=== PATIENT | female | born 1970 | race Caucasian/White ===

== ENCOUNTER → 2021-11-28 00:39 | Outpatient (CLI) | payer OTHER, SELFPAY ==
[2021-11-28 17:08] LABS: SARS-CoV-2 RNA PCR Negative
== END ==
PROVIDERS: PCP Family Medicine; Visit Provider Family Medicine
DX: Z20.822 Contact with and (suspected) exposure to COVID-19 (principal)
CPT/HCPCS: C9803; U0003; U0005

== ENCOUNTER 2024-10-03 00:16 | Day surgery (SDC) | payer OTHER, SELFPAY ==
[2024-09-11 13:32] VITALS: BMI 18.1
[2024-10-03 11:11] VITALS: BP 121/80; PULSE 87; RESP 16; TEMP 36.4; O2SAT 99
[2024-10-03] MEDS: LACTATED RINGERS 1,000 ML 150 ML IV CONT (11:22)
--- NOTE | 2024-10-03 12:05 | P.HP_ITS ---
H&P: [facility] History of Present Illness Date/Time: 10/03/24 12:05 Chief Complaint: Weight loss Narrative: the patient is referred for the investigation of more than 20 lb weight loss in the past year. She states that her appetite has decreased and describes intermittent epigastric discomfort and frequent heartburn, which persists despite antacid medication. Her last colonoscopy was more than 10 years ago. Maurice mehta is now referred for EGD and colonoscopy. Review of Systems Review of Systems: All systems reviewed & are unremarkable except as noted in HPI and below PMFSH Past Medical History Medical History Generalized osteoarthritis Insomnia Interstitial cystitis Surgical History Surgical History History of bladder suspension procedure 2009 History of hysterectomy 2002 History of oophorectomy Also in 2002 History of sinus surgery 1997 Family History Family History Mother Hypertension Father Hypertension Heart disease Social History Social History Smoking status: Never smoker Alcohol intake: current Drinks per week: 1 Alcohol use details: 2 drinks monthly Substance use: never Substance use type: does not use Do You Feel Safe in your Home?: Yes Lack of Transportation: No Lack of Food: Never True Current Housing: I Have Housing Concerned About Future Housing: No Difficulty Paying Gas/Electric Bills: No Difficulty Paying for Meds: No Currently Unemployed: No Education: High School Diploma/GED Difficulty w/ Childcare or Family Care: No Living arrangements: with family Occupation/Education: occupation Additional occupation/education comments: Cleans houses, paints, substitutes at preschool Gender identity (if verbalized by the patient): Female Sexual Orientation (if Verbalized by the Patient): Straight or Heterosexual Spiritual care concerns: No Meds Home Medications and Allergies Home Medications ?Medication ?Instructions ?Recorded ?Confirmed ?Type cyclobenzaprine 10 mg tablet 10 mg PO TID PRN muscle spasm #30 06/05/24 10/03/24 Rx tabs trazodone 100 mg tablet 100 mg PO QHS PRN insomnia #90 tabs 07/08/24 10/03/24 Rx famotidine 20 mg tablet (Pepcid AC) 20 mg PO DAILY 08/26/24 09/11/24 History omeprazole 40 mg capsule,delayed 40 mg PO DAILY #90 caps 08/26/24 10/03/24 Rx release Allergies Allergy/AdvReac Type Severity Reaction Status Date / Time No Known Allergies Allergy Unknown Verified 10/03/24 11:04 Vital Signs Vital Signs - 24 hr 10/03/24 11:11 Temperature 97.5 F L Pulse Rate 87 Respiratory Rate 16 Blood Pressure 121/80 Pulse Oximetry 99 Oxygen Delivery Room Air Exam Const: General: cooperative and healthy appearing Resp: Effort & Inspection: normal respiratory effort and able to speak in complete sentences Auscultation: clear to auscultation bilaterally Cardio: Rate: regular rate Rhythm: regular rhythm GI: Inspection: normal to inspection GI Palp: No No hepatosplenomegaly present Auscultation: normal bowel sounds Rectal Exam: deferred Skin: General skin exam: normal color Psych: Appearance: grossly normal Mental Status: mental status grossly normal Assessment and Plan Assessment and plan (1) Weight loss: Code(s): R63.4 - Abnormal weight loss Status: Acute Assessment and Plan: The patient is deemed a good candidate for the procedures. Consent signed. Will proceed.
--- NOTE | 2024-10-03 12:34 | WPDANESEPPF ---
Anes - Initial Pre Proc Eval Procedure: Operation Date: 10/03/24 11:30 Proposed Procedures p Esophagogastroduodenoscopy&Screen Colon - Esteban Prieto MD Date/Time: 10/03/24 12:34 Surgeon: Esteban Prieto MD Pre Op Diagnosis: Anorexia,abnormal weight loss,epigastric pain Patient Data Age: 53 Gender: F Height: 1.57 m Weight: 45.3 kg Last Vital Signs Temp 97.5 F L 10/03/24 11:11 Pulse 87 10/03/24 11:11 Resp 16 10/03/24 11:11 BP 121/80 10/03/24 11:11 Pulse Ox 99 10/03/24 11:11 O2 Del Method Room Air 10/03/24 11:11 Allergies Allergy/AdvReac Type Severity Reaction Status Date / Time No Known Allergies Allergy Unknown Verified 10/03/24 11:04 Home Medications ?Medication ?Instructions ?Recorded ?Confirmed ?Type cyclobenzaprine 10 mg tablet 10 mg PO TID PRN muscle spasm #30 06/05/24 10/03/24 Rx tabs trazodone 100 mg tablet 100 mg PO QHS PRN insomnia #90 tabs 07/08/24 10/03/24 Rx famotidine 20 mg tablet (Pepcid AC) 20 mg PO DAILY 08/26/24 09/11/24 History omeprazole 40 mg capsule,delayed 40 mg PO DAILY #90 caps 08/26/24 10/03/24 Rx release Patient hx anesthesia problems: none Family hx anesthesia problems: none Results Review: All pre-operative results and documents have been reviewed as part of the pre-operative evaluation. [facility] Past Medical History Medical History Generalized osteoarthritis Insomnia Interstitial cystitis Surgical History Surgical History History of bladder suspension procedure 2009 History of hysterectomy 2002 History of oophorectomy Also in 2002 History of sinus surgery 1997 Family History Family History Mother Hypertension Father Hypertension Heart disease Social History Social History Smoking status: Never smoker Alcohol intake: current Drinks per week: 1 Alcohol use details: 2 drinks monthly Substance use: never Substance use type: does not use Do You Feel Safe in your Home?: Yes Lack of Transportation: No Lack of Food: Never True Current Housing: I Have Housing Concerned About Future Housing: No Difficulty Paying Gas/Electric Bills: No Difficulty Paying for Meds: No Currently Unemployed: No Education: High School Diploma/GED Difficulty w/ Childcare or Family Care: No Living arrangements: with family Occupation/Education: occupation Additional occupation/education comments: Cleans houses, paints, substitutes at preschool Gender identity (if verbalized by the patient): Female Sexual Orientation (if Verbalized by the Patient): Straight or Heterosexual Spiritual care concerns: No Anes - Eval Final PreProcedure Day of Procedure 10/03/24 12:34 Patient weight: normal Heart: regular rate and rhythm Lungs: clear to auscultation Airway: Mallampati scale class II Neurological: alert and oriented Last oral intake: >/= 8 hours ASA classification: II Emergent: no Anesthetic plan: proceed Anesthesia type and monitoring: general GIVS and standard monitoring Results Review: All pre-operative results and documents have been reviewed as part of the pre-operative evaluation. Informed Consent: The patient's anesthetic plan and its attendant risks and benefits were discussed with the patient/family/POA. Questions were solicited and answers provided to the satisfaction of the patient/family/POA.
--- NOTE | 2024-10-03 13:04 | SUR.OPER ---
EGD:[id number] COLON:[id number]
[2024-10-03 13:32] VITALS: BP 98/61; PULSE 52; RESP 13; O2SAT 100
[2024-10-03 13:42] VITALS: BP 96/60; PULSE 57; RESP 12; O2SAT 100
[2024-10-03 13:52] VITALS: BP 119/84; PULSE 66; RESP 18; O2SAT 100
== END 2024-10-03 14:16 | disposition home or self-care (01) ==
PROVIDERS: PCP Family Medicine; Visit Provider Internal Medicine Gastroenterology
PROC: 0DJ08ZZ Inspection of Upper Intestinal Tract, Via Natural or Artificial Opening Endoscopic (ICD-10-PCS; CPT 45378; principal; 2024-10-03 11:30)
DX: Z12.11 Encounter for screening for malignant neoplasm of colon (principal); K64.8 Other hemorrhoids; K21.9 Gastro-esophageal reflux disease without esophagitis; G47.00 Insomnia, unspecified; Z98.890 Other specified postprocedural states; Z82.49 Family history of ischemic heart disease and other diseases of the circulatory system
CPT/HCPCS: 43239; 45378; 88305; J2003; J2704; J7120

== ENCOUNTER 2024-10-10 07:27 | Outpatient (CLI) | payer OTHER, SELFPAY ==
--- NOTE | ~2024-10-10 | CT_ITS ---
EXAMINATION: CT abdomen pelvis wo con DATE: 10/10/2024 07:49 INDICATION: Epigastric pain TECHNIQUE: Computed tomography (CT) of the abdomen and pelvis was performed without intravenous contr ast. Automated exposure control and iterative reconstruction technique were employed. The dose-length product was 178.97 mGy-cm. COMPARISON: None FINDINGS: Stable appearance of a likely benign chronic 4 mm right lower lobe nodule. Heart size is normal. No p ericardial or pleural effusion. Liver, gallbladder, spleen, pancreas, left kidney and bilateral adren al glands are normal. 3 nonobstructing right renal stones the largest measuring up to 2-3 mm. No uret eral stones or hydronephrosis. Moderate to large amount of stool scattered throughout the colon. Smal l bowel and appendix are normal. Bladder is normal. The uterus and ovaries are not identified and the re is a suture line in the right pelvis consistent with prior hysterectomy and possible oophorectomy. No free intraperitoneal gas or fluid. No pathologically enlarged abdominal or pelvic lymphadenopathy . 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 Mild lumbar and lower thoracic spondylosis. IMPRESSION: 1. Nonobstructing right nephrolithiasis. 2. Moderate to large amount of colonic stool. Correlate clinically for constipation. Reviewed, dictated and finalized at location B. [employer]ING RO[employer] SUPERVISOR IMPRESSION: 1. Nonobstructing right nephrolithiasis. 2. Moderate to large amount of colonic stool. Correlate clinically for constipa tion.
--- OUTSIDE RECORDS SUMMARY | 2024-10-16 05:05 | XMS_ITS | Continuity of Care Document ---
Author Organization [facility] Address [address] [place] [address] Phone Care Team Providers Care Ops Manager Name Role Phone Roseanna Stafford Unavailable Unavailable Advance Directives Directive Yes / No Effective Date File Name No Information Encounters Encounter Description Practice Location Reason(s) For Visit Diagnoses Date Provider Providers Copied on Encounter Formerly [facility], [address], [place], [place], [id number], [place] tel:[phone] [facility] No Information [address] , [address], [place], [address], [place]. tel:[phone] Referring Provider: Chon Watson MD, [address] [place], [address]. tel:[phone] Family History Family Member Type Diagnosis Age At Onset No Information Payers Payer name Insurance type Covered alliance party ID Authoriza tion(s) No Information Social History Type Description Quantity Date Captured Comments Sex Female Smoking Status No Information Chief Complaint And Reason For Visit No Information Reason For Referral Reason For Referral No Information History Of Present Illness Encounter Date Complaint History Of Prese nt Illness No Information Functional Status Date Functional Assessmen t No Information Instructions Date Instruction Additional Infor mation No Information Assessments Type Assessment Date No Information Patient Care Teams Name Effective Dates (start - stop) Status Members No Information
== END 2024-10-10 07:28 | disposition home or self-care (01) ==
PROVIDERS: PCP Family Medicine; Visit Provider Family Medicine
DX: R10.13 Epigastric pain (principal); R63.4 Abnormal weight loss
CPT/HCPCS: 74176